=== PATIENT | female | born 1985 | race African-American/Black ===

== ENCOUNTER 2017-03-11 19:37 | Emergency (ER) | payer MEDICAID, OTHER ==
[~2017-03-11] VITALS: Ht 152.4 cm; Wt 114.0 kg
[2017-03-12] MEDS ORDERED: ONDANSETRON HCL 4MG/2ML VIAL IV STA (00:22)
[2017-03-12] MEDS ORDERED: SODIUM CHLORIDE 0.9% 1,000 ML IV ONE (00:22)
[2017-03-12] MEDS ORDERED: LORAZEPAM 2MG/ML CPJ IV ONE (00:30)
[2017-03-12 00:40] LABS: BASOPHILS % 0.4 % (0.0-2.0); EOSINOPHILS % 0.2 % (0.0-5.0); HEMATOCRIT. 34.8 % (36.0-48.0); HEMOGLOBIN. 11.5 g/dL (12.0-16.0); LYMPHOCYTES % 24.5 % (20.0-50.0); MEAN CORPUSCULAR HEMOGLOBIN 27.3 pg (28.0-32.0); MEAN CORPUSCULAR HGB CONC 32.9 g/dL (31.0-37.0); MEAN PLATELET VOLUME 7.3 fl (7.4-10.4); MONOCYTES % 7.1 % (2.0-8.0); NEUTROPHILS % 67.8 % (40.0-76.0); PLATELET 368 x1000/uL (130-400); RED BLOOD CELL COUNT 4.19 mill/uL (4.2-5.4); RED CELL DISTRIBUTION WIDTH 14.1 % (11.6-14.6); WHITE BLOOD COUNT 9.9 x1000/uL (4.5-11.0)
[2017-03-12 00:45] LABS: CHLORIDE 102 mEq/L (98-107); INDEX HEMOLYSI 1 (1-3); INDEX ICTERIC 1 (1-4); INDEX LIPEMIC 1 (1-3)
[2017-03-12 00:54] LABS: ALANINE AMINOTRANSFERASE 15 IU/L (13-61); ALBUMIN 3.4 g/dL (3.4-5.0); ANION GAP 15; CALCIUM 8.4 mg/dL (8.5-10.1); CARBON DIOXIDE 25 mEq/L (21-32); UREA NITROGEN BLOOD 9 mg/dL (7-21); eGFR > 60 mL/min (>60)
[2017-03-12] MEDS ORDERED: KETOROLAC 30MG/ML VIAL IV ONE (01:30)
[2017-03-12] MEDS ORDERED: ACETAMINOPHEN 325MG TABLET PO ONE (06:45)
[2017-03-12 07:18] VITALS: BP 121/66
== END 2017-03-12 07:18 | disposition home or self-care (01) ==
LOC: ER 19:38
DX: R07.89 Other chest pain (principal); R11.2 Nausea with vomiting, unspecified; I10 Essential (primary) hypertension
CPT/HCPCS: 36415; 80053; 85025; 93005; 96361; 96374; 96375; 99285; J1885; J2060; J2405; J7030; Z7610

== ENCOUNTER 2017-07-31 00:05 | Emergency (ER) | payer SELFPAY ==
[~2017-07-31] VITALS: Ht 160 cm; Wt 113.0 kg
[2017-07-31] MEDS ORDERED: HYDR25TA PO (00:51)
[2017-07-31] MEDS ORDERED: LISI10TA5 PO (00:52)
[2017-07-31] MEDS ORDERED: TRAZ-129 PO (00:52)
[2017-07-31 02:30] VITALS: BP 134/90
== END 2017-07-31 08:02 | disposition left against medical advice (07) ==
LOC: ER 08:00
DX: R07.9 Chest pain, unspecified (principal); Z53.21 Procedure and treatment not carried out due to patient leaving prior to being seen by health care provider
CPT/HCPCS: 93005

== ENCOUNTER 2017-08-26 10:09 | Emergency (ER) | payer MEDICAID ==
[~2017-08-26] VITALS: Ht 152.4 cm; Wt 72.0 kg
[~2017-08-26 10:09] MED LIST: HYDR25TA PO; LISI10TA5 PO; TRAZ-129 PO
[2017-08-26] MEDS ORDERED: SODIUM CHLORIDE 0.9% 1,000 ML IV ONE (11:39)
[2017-08-26] MEDS ORDERED: LORAZEPAM 2MG/ML CPJ IV ONE (11:45)
[2017-08-26 12:25] LABS: BASOPHILS % 0.2 % (0.0-2.0); EOSINOPHILS % 0.1 % (0.0-5.0); HEMATOCRIT. 37.8 % (36.0-48.0); HEMOGLOBIN. 12.4 g/dL (12.0-16.0); LYMPHOCYTES % 17.7 % (20.0-50.0); MEAN CORPUSCULAR HEMOGLOBIN 26.8 pg (28.0-32.0); MEAN CORPUSCULAR VOLUME 81.7 fL (81.0-99.0); MEAN PLATELET VOLUME 7.2 fl (7.4-10.4); PLATELET 420 x1000/uL (130-400); RED BLOOD CELL COUNT 4.63 mill/uL (4.2-5.4); RED CELL DISTRIBUTION WIDTH 14.8 % (11.6-14.6)
[2017-08-26 12:34] LABS: HCG SCREEN NEGATIVE
[2017-08-26 12:42] LABS: CARBON DIOXIDE 23 mEq/L (21-32); CHLORIDE 97 mEq/L (98-107); CREATINE KINASE 34 IU/L (26-192); ETHANOL BLOOD < 10 mg/dL; TROPONIN I < 0.02 ng/mL (0.00-0.04)
[2017-08-26] MEDS ORDERED: SODIUM CHLORIDE 0.9% 10ML VIAL ONE (13:24)
[2017-08-26] MEDS ORDERED: IOHEXOL-350 100 ML BOTTLE ONE (13:24)
[2017-08-26] MEDS ORDERED: METOCLOPRAMIDE HCL 10MG/2ML VIAL IV ONE (15:00)
[2017-08-26] MEDS ORDERED: KETOROLAC 15MG/ML VIAL IV ONE (15:00)
[2017-08-26 15:15] VITALS: BP 114/85
== END 2017-08-26 17:14 | disposition home or self-care (01) ==
LOC: ER 11:09
DX: G43.909 Migraine, unspecified, not intractable, without status migrainosus (principal); F41.9 Anxiety disorder, unspecified; I10 Essential (primary) hypertension; Z91.81 History of falling
CPT/HCPCS: 36415; 70450; 71010; 71275; 80053; 82550; 83880; 84443; 84484; 84703; 85025; 85379; 93005; 96361; 96374; 96375; 99285; A4216; G0482; J1885; J2060; J2765; J7030; Q9967; Z7610